=== PATIENT | female | born 1990 | race Caucasian/White ===

== ENCOUNTER 2020-08-10 09:10 | Outpatient (CLI) | payer BC, MEDICAID ==
[~2020-08-10] VITALS: Ht 160 cm; Wt 65.9 kg
[~2020-08-10 09:10] MED LIST: MEDR150D3 IM
[2020-08-10 09:36] VITALS: BP 105/64
[2020-08-10 09:53] LABS: MICROSCOPIC INDICATED
[2020-08-10 10:18] LABS: BASOPHILS % (AUTO) 0 % (0-1); EOSINOPHILS % (AUTO) 2 % (1-7); LYMPHOCYTES % (AUTO) 15 % (22-44); MD NO; MONOCYTES % (AUTO) 7 % (2-9); NEUTROPHILS % (AUTO) 76 % (42-75); PLATELET COUNT 185 x10^3/uL (130-400); RED BLOOD COUNT 3.52 x10^6/uL (3.82-5.3); RED CELL DISTRIBUTION WIDTH 13.5 % (9.6-15.2)
[2020-08-10 10:24] LABS: ALANINE AMINOTRANSFERASE 19 U/L (12-78); ALBUMIN 2.7 g/dL (3.4-5.0); ANION GAP 8 mmol/L (5-15); CALCIUM 8.6 mg/dL (8.5-10.1); CHLORIDE 110 mmol/L (98-107); CREATININE 0.41 mg/dL (0.55-1.02)
[2020-08-10 10:26] LABS: ALKALINE PHOSPHATASE 71 U/L (45-117); BILIRUBIN,TOTAL 0.3 mg/dL (0.2-1.0); TOTAL PROTEIN 6.4 g/dL (6.4-8.2)
== END 2020-08-10 12:50 | disposition home or self-care (01) ==
LOC: LDOP 09:10
PROVIDERS: ATTEND Obstetrics & Gynecology
DX: O26.892 Other specified pregnancy related conditions, second trimester (principal); R10.9 Unspecified abdominal pain; Z3A.26 26 weeks gestation of pregnancy
CPT/HCPCS: 36415; 59025; 76700; 80053; 81001; 82150; 83690; 85025; 87086

== ENCOUNTER 2020-09-08 13:56 | Outpatient (CLI) | payer BC ==
[~2020-09-08] VITALS: Ht 160 cm; Wt 70.0 kg
[2020-09-08 14:41] LABS: TOTAL PROTEIN,URINE RANDOM < 5 mg/dL (0-12)
[2020-09-08 14:45] LABS: MICROSCOPIC INDICATED
[2020-09-08 14:52] LABS: BASOPHILS % (AUTO) 1 % (0-1); EOSINOPHILS % (AUTO) 1 % (1-7); LYMPHOCYTES % (AUTO) 13 % (22-44); MEAN CORPUSCULAR HEMOGLOBIN 29.5 pg (27.0-34.8); MONOCYTES % (AUTO) 9 % (2-9); NEUTROPHILS % (AUTO) 77 % (42-75); PLATELET COUNT 177 x10^3/uL (130-400); RED BLOOD COUNT 3.45 x10^6/uL (3.82-5.3); RED CELL DISTRIBUTION WIDTH 14.7 % (9.6-15.2)
[2020-09-08 14:56] LABS: MD NO
[2020-09-08 15:10] LABS: ALBUMIN 2.6 g/dL (3.4-5.0); ANION GAP 6 mmol/L (5-15); CALCIUM 8.5 mg/dL (8.5-10.1); CHLORIDE 108 mmol/L (98-107)
[2020-09-08 15:22] LABS: ALANINE AMINOTRANSFERASE 12 U/L (12-78); ALKALINE PHOSPHATASE 84 U/L (45-117); BILIRUBIN,TOTAL 0.3 mg/dL (0.2-1.0); CREATININE 0.45 mg/dL (0.55-1.02); TOTAL PROTEIN 6.5 g/dL (6.4-8.2)
== END 2020-09-08 15:35 | disposition home or self-care (01) ==
LOC: LDOP 13:56
PROVIDERS: ATTEND Obstetrics & Gynecology
DX: O13.3 Gestational [pregnancy-induced] hypertension without significant proteinuria, third trimester (principal); Z3A.30 30 weeks gestation of pregnancy
CPT/HCPCS: 36415; 59025; 80053; 81001; 82570; 84156; 84443; 85025; 87086

== ENCOUNTER 2020-10-05 10:55 | Outpatient (CLI) | payer BC ==
[~2020-10-05] VITALS: Ht 162.6 cm; Wt 70.5 kg
[2020-10-05 11:01] VITALS: BP 98/69
[2020-10-05 12:26] LABS: MICROSCOPIC INDICATED
[2020-10-05 12:34] LABS: BASOPHILS % (AUTO) 0 % (0-1); EOSINOPHILS % (AUTO) 1 % (1-7); LYMPHOCYTES % (AUTO) 20 % (22-44); MEAN CORPUSCULAR HEMOGLOBIN 29.9 pg (27.0-34.8); MEAN CORPUSCULAR HGB CONC 33.4 g/dL (32.4-35.8); MEAN PLATELET VOLUME 8.9 fL (7.4-10.4); MONOCYTES % (AUTO) 9 % (2-9); NEUTROPHILS % (AUTO) 69 % (42-75); PLATELET COUNT 137 x10^3/uL (130-400); RED BLOOD COUNT 3.58 x10^6/uL (3.82-5.3); RED CELL DISTRIBUTION WIDTH 20.9 % (9.6-15.2)
[2020-10-05 12:35] LABS: ALBUMIN 2.6 g/dL (3.4-5.0); ANION GAP 8 mmol/L (5-15); CALCIUM 8.7 mg/dL (8.5-10.1); CHLORIDE 109 mmol/L (98-107)
[2020-10-05 12:38] LABS: CREATININE,URINE RANDOM 66.8 mg/dL
[2020-10-05 12:38] LABS: ALANINE AMINOTRANSFERASE 11 U/L (12-78); ALKALINE PHOSPHATASE 92 U/L (45-117); BILIRUBIN,TOTAL 0.2 mg/dL (0.2-1.0); CREATININE 0.34 mg/dL (0.55-1.02); TOTAL PROTEIN 6.1 g/dL (6.4-8.2)
[2020-10-05 12:40] LABS: BILIRUBIN, DIRECT < 0.1 mg/dL (0.1-0.2)
[2020-10-05 13:08] LABS: ANISOCYTOSIS 1+; MD MORPH REVIEW ONLY; POLYCHROMASIA 1+; TEAR DROPS 1+
[2020-10-05 13:09] LABS: <PLATELET ESTIMATE> DECREASED; <PLT MORPHOLOGY> NORMAL PLT MORPH
== END 2020-10-05 13:20 | disposition home or self-care (01) ==
LOC: LDOP 10:55
PROVIDERS: ATTEND Obstetrics & Gynecology
DX: O13.3 Gestational [pregnancy-induced] hypertension without significant proteinuria, third trimester (principal); Z3A.34 34 weeks gestation of pregnancy
CPT/HCPCS: 36415; 59025; 80053; 81001; 82248; 82570; 84156; 84550; 85025

== ENCOUNTER 2020-10-11 10:55 | Outpatient (CLI) | payer BC ==
[2020-10-11 11:00] VITALS: BP 96/54
== END 2020-10-11 12:53 | disposition home or self-care (01) ==
LOC: LDOP 10:55
PROVIDERS: ATTEND Nurse Practitioner Family
DX: O36.8130 Decreased fetal movements, third trimester, not applicable or unspecified (principal); Z3A.35 35 weeks gestation of pregnancy
CPT/HCPCS: 59025; 76819

== ENCOUNTER 2020-11-03 09:43 | Outpatient (CLI) | payer BC ==
[~2020-11-03] VITALS: Ht 160 cm; Wt 73.6 kg
[2020-11-03 09:54] VITALS: BP 106/75
[2020-11-03] MEDS ORDERED: PREN1TAB62 PO (09:58)
[2020-11-03] MEDS ORDERED: ASPI-963 PO (09:59)
== END 2020-11-03 10:47 | disposition home or self-care (01) ==
LOC: LDOP 09:43
PROVIDERS: ATTEND Obstetrics & Gynecology
DX: O26.893 Other specified pregnancy related conditions, third trimester (principal); R60.9 Edema, unspecified; Z3A.38 38 weeks gestation of pregnancy
CPT/HCPCS: 59025

== ENCOUNTER 2020-11-03 11:04 | Emergency (ER) | payer BC ==
[~2020-11-03] VITALS: Ht 160 cm; Wt 74.6 kg
[~2020-11-03 11:04] MED LIST changes: +ASPI-963 PO; +PREN1TAB62 PO
--- NOTE | 2020-11-03 11:42 | NUR ---
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
[2020-11-03 11:59] LABS: BASOPHILS % (AUTO) 0 % (0-1); EOSINOPHILS % (AUTO) 0 % (1-7); LYMPHOCYTES % (AUTO) 17 % (22-44); MEAN CORPUSCULAR HEMOGLOBIN 30.9 pg (27.0-34.8); MEAN CORPUSCULAR HGB CONC 34.3 g/dL (32.4-35.8); MEAN PLATELET VOLUME 9.4 fL (7.4-10.4); MONOCYTES % (AUTO) 7 % (2-9); NEUTROPHILS % (AUTO) 76 % (42-75); PLATELET COUNT 135 x10^3/uL (130-400); RED BLOOD COUNT 4.22 x10^6/uL (3.82-5.3); RED CELL DISTRIBUTION WIDTH 21.3 % (9.6-15.2)
--- NOTE | 2020-11-03 12:03 | NUR ---
PT ON ALL ROOM MONITORING EQUIPMENT. PT REPORTS SWELLING TO RLE MOVING UP TO R CHEST AND INTO R NECK WITH SUDDEN SOB THIS AM. PT PRESENTED TO L&D WHO DID FHT AND CHECKED DILATION. PER PT, DILATION AT 1 AND HAS NOT HAD WATER BREAK OR FELT ANY CONTRACTIONS AT THIS TIME. PER PT, MULTIPLE PROBLEMS WITH THIS PG (#3), IRON DEFICIENT AND NEEDING TRANSFUSIONS. NO OTHER MEDICAL HX. FIRST TWO PREGNANCIES WITHOUT PROBLEM. CALL LIGHT WITHIN REACH, PA STUDENT IN TO SEE.
[2020-11-03 12:08] LABS: ALBUMIN 2.9 g/dL (3.4-5.0); ANION GAP 8 mmol/L (5-15); CALCIUM 8.8 mg/dL (8.5-10.1); CHLORIDE 110 mmol/L (98-107); CREATININE 0.38 mg/dL (0.55-1.02)
--- NOTE | 2020-11-03 12:41 | NUR ---
ADD ON ORDERS FOR US AND COVID.
[2020-11-03 12:44] LABS: MD SCAN
[2020-11-03 12:59] VITALS: BP 99/64
--- NOTE | 2020-11-03 13:10 | NUR ---
ALL RESULTS BACK, PT FOR RECHECK.
== END 2020-11-03 13:32 | disposition home or self-care (01) ==
LOC: ED 13:08
DX: O26.893 Other specified pregnancy related conditions, third trimester (principal); Z20.822 Contact with and (suspected) exposure to COVID-19; R06.00 Dyspnea, unspecified; R07.89 Other chest pain; Z3A.39 39 weeks gestation of pregnancy
CPT/HCPCS: 36415; 71045; 80048; 82040; 85025; 87635; 93005; 99285

== ENCOUNTER 2020-11-13 20:06 | Inpatient (IN) | payer BC ==
[~2020-11-13] VITALS: Ht 160 cm; Wt 73.6 kg
[2020-11-13 20:47] VITALS: BP 108/57
[2020-11-13] MEDS ORDERED: LACTATED RINGERS 1,000 ML IV SCH (22:00)
[2020-11-13] MEDS ORDERED: ONDANSETRON 2MG/ML, 2ML IVPush PRN (22:00)
[2020-11-13] MEDS ORDERED: FENTANYL PF 100 MCG/2ML IV PRN (22:00)
[2020-11-13] MEDS ORDERED: TERBUTALINE 1 MG/ML, 1ML SQ PRN (22:00)
[2020-11-13] MEDS ORDERED: TERBUTALINE 1 MG/ML, 1ML IVPush PRN (22:00)
[2020-11-13] MEDS ORDERED: FENTANYL PF 100 MCG/2ML IVPush PRN (22:00)
[2020-11-13] MEDS ORDERED: D5%-LACTATED RINGERS 1,000 ML IV SCH (22:00)
[2020-11-13] MEDS ORDERED: PENICILLIN GK 5,000,000 UNITS in DEXTROSE 5% 100 ML IVPB ONE (22:00)
[2020-11-13] MEDS ORDERED: OXYTOCIN 30U/ 0.9% NaCL 500ML 500 ML IV ONE (22:00)
[2020-11-13 22:09] LABS: BASOPHILS % (AUTO) 0 % (0-1); EOSINOPHILS % (AUTO) 1 % (1-7); LYMPHOCYTES % (AUTO) 19 % (22-44); MEAN CORPUSCULAR HEMOGLOBIN 30.9 pg (27.0-34.8); MEAN CORPUSCULAR HGB CONC 34.4 g/dL (32.4-35.8); MONOCYTES % (AUTO) 9 % (2-9); NEUTROPHILS % (AUTO) 71 % (42-75); PLATELET COUNT 133 x10^3/uL (130-400); RED BLOOD COUNT 4.18 x10^6/uL (3.82-5.3); RED CELL DISTRIBUTION WIDTH 20.3 % (9.6-15.2)
[2020-11-13 22:10] LABS: MD NO
[2020-11-13] MEDS ORDERED: MISOPROSTOL 200 MCG TABLET ONE (22:32)
[2020-11-13] MEDS ORDERED: LIDOCAINE 1%, 20ML ONE (22:32)
[2020-11-13 22:48] LABS: ALANINE AMINOTRANSFERASE 15 U/L (12-78); ALBUMIN 2.5 g/dL (3.4-5.0); ANION GAP 9 mmol/L (5-15); CALCIUM 8.3 mg/dL (8.5-10.1); CHLORIDE 108 mmol/L (98-107); CREATININE 0.45 mg/dL (0.55-1.02)
[2020-11-13 22:49] LABS: BILIRUBIN, DIRECT < 0.1 mg/dL (0.1-0.2)
[2020-11-13 22:59] LABS: ALKALINE PHOSPHATASE 166 U/L (45-117); BILIRUBIN,TOTAL 0.4 mg/dL (0.2-1.0); FREE T4 (FREE THYROXINE) 0.84 ng/dL (0.76-1.46); TOTAL PROTEIN 6.2 g/dL (6.4-8.2)
[2020-11-13 23:07] VITALS: BP 108/57
[2020-11-14] MEDS ORDERED: FENTANYL/BUPIV./NS/PF 250 ML EPIDCONT ONE (00:46)
[2020-11-14] MEDS ORDERED: BUPIVACAINE 0.25% ONE (00:47)
[2020-11-14] MEDS ORDERED: LACTATED RINGERS 1,000 ML IVBOLUS PRN ×2 (01:00)
[2020-11-14] MEDS ORDERED: FENTANYL/BUPIV./NS/PF 250 ML EPIDCONT SCH ×2 (01:00)
[2020-11-14] MEDS ORDERED: LACTATED RINGERS 1,000 ML IV SCH ×2 (01:00)
[2020-11-14] MEDS ORDERED: NALOXONE 0.4 MG/ML, 1ML IVPush PRN ×2 (01:00)
[2020-11-14] MEDS ORDERED: EPHEDRINE 50 MG/ML, 1ML IVPush PRN ×2 (01:00)
[2020-11-14] MEDS: PENICILLIN GK 2,500,000 UNITS in DEXTROSE 5% 100 ML IVPB SCH ×4 (02:57→14:00)
[2020-11-14] MEDS ORDERED: SIMETHICONE 80 MG CHEW TAB PO PRN (04:30)
[2020-11-14] MEDS ORDERED: METOCLOPRAMIDE 5 MG/ML, 2ML IV PRN (04:30)
[2020-11-14] MEDS: OXYTOCIN 30U/ 0.9% NaCL 500ML 500 ML IV SCH ×2 (04:30→14:30)
[2020-11-14] MEDS ORDERED: ONDANSETRON 2MG/ML, 2ML IV PRN (04:30)
[2020-11-14] MEDS ORDERED: RHOGAM FROM BLOOD BANK 1 NOTE EA IM/IV ONE (04:30)
[2020-11-14] MEDS ORDERED: CARBOPROST TROMETHAMINE 250 MCG/ML, 1ML IM PRN (04:30)
[2020-11-14] MEDS ORDERED: MISOPROSTOL 200 MCG TABLET PR PRN (04:30)
[2020-11-14] MEDS ORDERED: ACETAMINOPHEN 325 MG TABLET PO PRN (04:30)
[2020-11-14] MEDS ORDERED: OXYcodone/APAP 5/325MG TABLET PO PRN ×2 (04:30→15:30)
[2020-11-14] MEDS: IBUPROFEN 600 MG TABLET PO PRN ×3 (06:12→17:49)
[2020-11-14 07:35] VITALS: BP 106/72
[2020-11-14] MEDS: PRENATAL VIT/IRON/FA 1 EACH TABLET PO SCH (09:01)
[2020-11-14] MEDS: DOCUSATE 100 MG CAPSULE PO PRN (09:01)
[2020-11-14] MEDS: OXYcodone/APAP 5/325MG TABLET PO PRN ×3 (09:01→13:08)
[2020-11-14 12:55] VITALS: BP 114/75
[2020-11-14 13:19] LABS: BASOPHILS % (AUTO) 0 % (0-1); EOSINOPHILS % (AUTO) 1 % (1-7); LYMPHOCYTES % (AUTO) 12 % (22-44); MEAN CORPUSCULAR HEMOGLOBIN 31.1 pg (27.0-34.8); MEAN CORPUSCULAR HGB CONC 34.5 g/dL (32.4-35.8); MEAN PLATELET VOLUME 9.4 fL (7.4-10.4); MONOCYTES % (AUTO) 7 % (2-9); NEUTROPHILS % (AUTO) 80 % (42-75); PLATELET COUNT 121 x10^3/uL (130-400); RED BLOOD COUNT 4.13 x10^6/uL (3.82-5.3); RED CELL DISTRIBUTION WIDTH 20.2 % (9.6-15.2)
[2020-11-14 13:27] LABS: MD NO
[2020-11-14 16:45] VITALS: BP 115/83
[2020-11-14 19:17] VITALS: BP 109/75
[2020-11-15 00:09] VITALS: BP 111/75
[2020-11-15] MEDS: IBUPROFEN 600 MG TABLET PO PRN ×2 (02:30→10:44)
[2020-11-15 04:17] VITALS: BP 112/78
[2020-11-15 08:39] VITALS: BP 107/74
[2020-11-15] MEDS ORDERED: IBUP-1840 PO (09:16)
[2020-11-15] MEDS: PRENATAL VIT/IRON/FA 1 EACH TABLET PO SCH (10:44)
[2020-11-15] MEDS: DOCUSATE 100 MG CAPSULE PO PRN (10:44)
== END 2020-11-15 18:11 | disposition home or self-care (01) | DRG 807 ==
LOC: LDOP 20:06 → LDIP 21:37 → 2NW 11-14 07:34
PROVIDERS: ADMIT Obstetrics & Gynecology; ATTEND Obstetrics & Gynecology
PROC: 10E0XZZ Delivery of Products of Conception, External Approach (ICD-10-PCS; principal; 2020-11-14)
PROC: 10907ZC Drainage of Amniotic Fluid, Therapeutic from Products of Conception, Via Natural or Artificial Opening (ICD-10-PCS; 2020-11-14)
PROC: 0HQ9XZZ Repair Perineum Skin, External Approach (ICD-10-PCS; 2020-11-14)
PROC: 3E0R3BZ Introduction of Anesthetic Agent into Spinal Canal, Percutaneous Approach (ICD-10-PCS; 2020-11-14)
PROC: 00HU33Z Insertion of Infusion Device into Spinal Canal, Percutaneous Approach (ICD-10-PCS; 2020-11-14)
DX: O69.81X0 Labor and delivery complicated by cord around neck, without compression, not applicable or unspecified (principal); Z37.0 Single live birth; O70.0 First degree perineal laceration during delivery; O99.824 Streptococcus B carrier state complicating childbirth; Z3A.40 40 weeks gestation of pregnancy; Z20.822 Contact with and (suspected) exposure to COVID-19; O71.82 Other specified trauma to perineum and vulva; O99.284 Endocrine, nutritional and metabolic diseases complicating childbirth; E05.90 Thyrotoxicosis, unspecified without thyrotoxic crisis or storm
CPT/HCPCS: 36415; 80053; 82248; 84439; 84443; 84550; 85025; 86592; 86850; 86900; 87635; G0378; J2540; J7120